=== PATIENT | male | born 1975 | race African-American/Black ===

== ENCOUNTER 2020-10-23 06:01 | Emergency (ER) | payer MEDICAID ==
[~2020-10-23] VITALS: Ht 185.4 cm; Wt 95.0 kg
[2020-10-23 06:21] VITALS: BP 188/110
[2020-10-23] MEDS ORDERED: IBUPROFEN 800MG TABLET PO ONE (07:45)
[2020-10-23 07:46] LABS: BASOPHILS % 0.5 % (0.0-2.0); EOSINOPHILS % 1.3 % (0.0-5.0); HEMATOCRIT. 43.6 % (42.0-52.0); HEMOGLOBIN. 14.8 g/dL (14.0-18.0); LYMPHOCYTES % 12.2 % (20.0-50.0); MEAN CORPUSCULAR HEMOGLOBIN 31.7 pg (28.0-32.0); MEAN CORPUSCULAR VOLUME 93.7 fL (80.0-94.0); MEAN PLATELET VOLUME 8.8 fl (7.4-10.4); MONOCYTES % 8.3 % (2.0-8.0); NEUTROPHILS % 77.7 % (40.0-76.0); PLATELET 252 x1000/uL (130-400); RED BLOOD CELL COUNT 4.66 mill/uL (4.7-6.1); RED CELL DISTRIBUTION WIDTH 13.8 % (11.6-14.6)
[2020-10-23 07:53] LABS: CHLORIDE 101 mEq/L (98-107)
[2020-10-23] MEDS ORDERED: FURO-152 MT (10:39)
[2020-10-23] MEDS ORDERED: AMLO5TAB88 MT (10:39)
[2020-10-23] MEDS ORDERED: AMLODIPINE 5MG TABLET PO SCH (10:45)
== END 2020-10-23 12:42 | disposition home or self-care (01) ==
LOC: ER 06:01
DX: S01.511A Laceration without foreign body of lip, initial encounter (principal); B34.9 Viral infection, unspecified; I11.0 Hypertensive heart disease with heart failure; I50.9 Heart failure, unspecified; Z76.0 Encounter for issue of repeat prescription; Z00.00 Encounter for general adult medical examination without abnormal findings; Z87.891 Personal history of nicotine dependence; Z79.899 Other long term (current) drug therapy; X58.XXXA Exposure to other specified factors, initial encounter; Y93.89 Activity, other specified; Y92.89 Other specified places as the place of occurrence of the external cause; Y99.8 Other external cause status
CPT/HCPCS: 36415; 71045; 80053; 83880; 84484; 85025; 93005; 99285

== ENCOUNTER 2020-11-01 00:39 | Emergency (ER) | payer MEDICAID ==
[~2020-11-01] VITALS: Ht 188 cm; Wt 108.0 kg
[~2020-11-01 00:39] MED LIST: AMLO5TAB88 MT; FURO-152 MT
[2020-11-01 00:41] VITALS: BP 125/89
[2020-11-01] MEDS ORDERED: IBUPROFEN 800MG TABLET PO ONE (01:00)
[2020-11-06] MEDS ORDERED: POTA20TA82 PO (14:08)
[2020-11-06] MEDS ORDERED: LOSA25TA3 PO (14:08)
[2020-11-06] MEDS ORDERED: COR6 PO (14:08)
[2020-11-06] MEDS ORDERED: ASPI-1160 PO (14:08)
[2020-11-06] MEDS ORDERED: THIA100T72 PO (14:08)
== END 2020-11-01 01:27 | disposition home or self-care (01) ==
LOC: ER 00:39
DX: Z48.02 Encounter for removal of sutures (principal); I11.0 Hypertensive heart disease with heart failure; I50.9 Heart failure, unspecified
CPT/HCPCS: 99282

== ENCOUNTER 2022-09-16 02:16 | Emergency (ER) | payer MEDICAID, OTHER ==
[~2022-09-16] VITALS: Ht 185.4 cm; Wt 92.8 kg
[~2022-09-16 02:16] MED LIST changes: -AMLO5TAB88 MT; +ASPI-1160 PO; +COR6 PO; +LOSA25TA3 PO; +POTA-204 PO; +THIA100T72 PO
[2022-09-16] MEDS ORDERED: ASPIRIN 81MG TABLET PO ONE (03:15)
[2022-09-16] MEDS ORDERED: NITROGLYCERIN 0.4MG TABLET SL SL PRN (03:15)
[2022-09-16 04:06] LABS: CHLORIDE 104 mEq/L (98-107)
[2022-09-16 04:09] LABS: BASOPHILS % 0.4 % (0.0-2.0); EOSINOPHILS % 0.5 % (0.0-5.0); HEMATOCRIT. 42.5 % (42.0-52.0); HEMOGLOBIN. 14.8 g/dL (14.0-18.0); LYMPHOCYTES % 9.8 % (20.0-50.0); MEAN CORPUSCULAR HEMOGLOBIN 35.9 pg (28.0-32.0); MEAN CORPUSCULAR VOLUME 103.2 fL (80.0-94.0); MEAN PLATELET VOLUME 10.2 fl (7.4-10.4); MONOCYTES % 6.4 % (2.0-8.0); NEUTROPHILS % 82.9 % (40.0-76.0); PLATELET 141 x1000/uL (130-400); RED BLOOD CELL COUNT 4.12 mill/uL (4.7-6.1); RED CELL DISTRIBUTION WIDTH 15.2 % (11.6-14.6)
[2022-09-16 04:39] LABS: ETHANOL BLOOD 184 mg/dL
[2022-09-16] MEDS ORDERED: NALOXONE HCL 0.4MG/ML VIAL IV PRN (08:30)
[2022-09-16] MEDS: HYDROCODONE/ACETAMINOPHEN 10/325MG TABLET PO PRN ×2 (08:56→10:18)
[2022-09-16 09:40] LABS: *AMPHETAMINES SCREEN URINE NEGATIVE (NEGATIVE); *BARBITURATES SCREEN URINE NEGATIVE (NEGATIVE); *BENZODIAZEPINES SCREEN URINE PRESUMTIVE POSITIVE (NEGATIVE); *COCAINE SCREEN URINE NEGATIVE (NEGATIVE); CANNABINOID URINE SCREEN NEGATIVE (NEGATIVE); METHADONE URINE SCREEN NEGATIVE (NEGATIVE); OPIATES URINE SCREEN NEGATIVE (NEGATIVE); PHENCYCLIDINE URINE SCREEN NEGATIVE (NEGATIVE)
[2022-09-16 10:00] VITALS: BP 135/93
== END 2022-09-16 10:28 | disposition left against medical advice (07) ==
LOC: ER 02:16 → CANBEDREQ 11:54
DX: R07.89 Other chest pain (principal); F10.129 Alcohol abuse with intoxication, unspecified; I10 Essential (primary) hypertension; Z79.82 Long term (current) use of aspirin; Y90.6 Blood alcohol level of 120-199 mg/100 ml
CPT/HCPCS: 36415; 71045; 80053; 80305; 80320; 83880; 84484; 85025; 93005; 99291; Z7610; G0480